=== PATIENT | female | born 1990 | race Two or more races ===

== ENCOUNTER 2018-02-22 08:08 | Observation (INO) | payer MEDICAID ==
--- NOTE | 2018-02-22 09:44 | OBPROG ---
Labor Progress Note Assessment/Plan: Assessment: 27 y/o with IUP at 37.2 weeks ega Amnisure negative Reactive NST Cervix 2-3/60/-3 (unchanged from office exam) Plan: Will discharge home with labor precautions - FKCs reviewed. Will call if nausea/vomiting worsens and she isn't able to keep fluids down. F/U for regular OB visit this week. 02/22/18 13:41 02/22/18 14:01 Subjective/Intrapartum Course: 02/22/18 13:59 Mosses presents to L/D today after having some nausea and vomiting X1 this AM. She noticed some fluid leaking at that time and is worried her membranes may have ruptured. Baby has been active and she denies vaginal bleeding or other concerns. She is having occasional mild contractions. - SVE Dilation (cm): 3 Effacement (%): 50 Station: -3 - Contraction Pattern Assessment Current Contraction Pattern: Irregular (mild - not painful) - Physical Exam General Appearance: WD/WN, alert, no apparent distress Neck: non-tender Respiratory: normal breath sounds Cardiac/Chest: regular rate, rhythm Skin: normal color Neuro/Psych: alert, normal mood/affect, oriented x 3 Oxytocin Orders Assessment - Pre-Induction/Augmentation Assessment Gestational Age: 37 week(s) and 2 day(s) ICD10 Worksheet Patient Problems: Problems Problem Status Onset NST (non-stress test) reactive Acute Nausea & vomiting Acute - ICD10 Problem Qualifiers (1) NST (non-stress test) reactive (2) Nausea & vomiting
== END 2018-02-22 09:44 | disposition home or self-care (01) ==
LOC: FLD 08:08
PROVIDERS: ADMIT Advanced Practice Midwife; ATTEND Advanced Practice Midwife
DX: O47.9 False labor, unspecified (principal); Z3A.37 37 weeks gestation of pregnancy
CPT/HCPCS: 59025; G0378